=== PATIENT | female | born 1980 | race Two or more races ===

== ENCOUNTER 2018-03-22 11:57 | Emergency (ER) | payer MEDICAID ==
[~2018-03-22] VITALS: Ht 154.9 cm; Wt 56.2 kg
[~2018-03-22 11:57] MED LIST: ACETAMINOPHEN-1 EAC1 ORAL; CEPHALEXIN500 MG ORAL; KEFLEX500 MG ORAL; NKM; NORCO 5-325 TA1 EACH ORAL; POLYTRIM OP SOL10 ML RIGHT EYE; ZANTAC150 MG ORAL
--- NOTE | 2018-03-22 12:23 | Emergency Room Report ---
History of Present Illness General Chief Complaint: Female Urogenital Problems Source: Patient Present Illness HPI patient is a 37-year-old female with no significant past medical history here complaining of 3 days of dysuria, urinary frequency/urgency. Denies some dysuria, fever/chills, suprapubic pain, flank pain. Patient tried some over-the -counter pain medication for her dysuria with no improvement. Patient currently on her menstruation. Patient is rating her pain 3 out of 10 with no radiation. Patient has not recently been sexually active. SOB, chest pain, headache, dizziness, and all other associated symptoms. Allergies: Coded Allergies: No Known Allergies (Unverified , 09/24/13) Patient History Past Medical History: see triage record Past Surgical History: none Last Menstrual Period: on period Now: No Immunizations: UTD Reviewed Nursing Documentation: PMH: Agreed; PSxH: Agreed Nursing Documentation-PMH Past Medical History: No Stated History Hx Gastrointestinal Problems: Yes - gall stones Review of Systems All Other Systems: negative except mentioned in HPI Physical Exam Vital Signs Date Time Temp Pulse Resp B/P (MAP) Pulse Ox O2 Delivery O2 Flow Rate FiO2 03/22/18 12:06 98.4 53 14 108/59 96 Room Air 98.4 Sp02 EP Interpretation: reviewed General Appearance: normal inspection, well appearing Head: normocephalic Eyes: bilateral eye normal inspection, bilateral eye PERRL ENT: normal ENT inspection Neck: normal inspection, full range of motion Respiratory: normal inspection, chest non-tender, no rhonchi Cardiovascular #1: normal inspection, normal peripheral pulses, regular rate, rhythm, no murmur Gastrointestinal: normal inspection, soft Rectal: deferred Genitourinary: normal inspection, no CVA tenderness Musculoskeletal: normal inspection, back normal Neurologic: normal inspection, alert, oriented x3 Psychiatric: normal inspection, judgement/insight normal Skin: normal inspection, normal color, no rash, warm/dry Lymphatic: normal inspection, no adenopathy Medical Decision Making PA Attestation all diagnosis, treatment plans were reviewed by myself supervising physician Diagnostic Impression: Primary Impression: UTI (urinary tract infection) Additional Impression: Dysuria ER Course patient is a 37-year-old female with no significant past medical history here complaining of 3 days of dysuria, urinary frequency/urgency. Denies some dysuria, fever/chills, suprapubic pain, flank pain. Patient tried some over-the -counter pain medication for her dysuria with no improvement. Patient currently on her menstruation. Patient is rating her pain 3 out of 10 with no radiation. Patient has not recently been sexually active. SOB, chest pain, headache, dizziness, and all other associated symptoms. Ddx considered but are not limited to dysuria, UTI, dementia area, pyelonephritis Vital signs: are WNL, pt. is afebrile H&PE are most consistent with UTI ORDERS: UA and urine test, Macrobid 100 mg twice a day 7 days, Pyridium 100 mg 3 times a day when necessary 2 days ED INTERVENTIONS: UA and urine test DISCHARGE: At this time pt. is stable for d/c to home. Will provide printed patient care instructions, and any necessary prescriptions. Care plan and follow up instructions have been discussed with the patient prior to discharge. 3+ leuks and UA and positive nitrite Lab Results Impression 3+ leuks and UA positive nitrite Last Vital Signs Date Time Temp Pulse Resp B/P (MAP) Pulse Ox O2 Delivery O2 Flow Rate FiO2 03/22/18 12:06 98.4 53 14 108/59 96 Room Air 98.4 Disposition: HOME, SELF-CARE Condition: Stable Scripts Phenazopyridine Hcl* (PYRIDIUM*) 100 Mg Tablet 100 MG ORAL THREE TIMES A DAY for 2 Days, #6 TAB Prov: Katie Catalan P.A. 03/22/18 Nitrofurantoin Monohyd/M-Cryst* (MACROBID 100 MG*) 100 Mg Capsule 100 MG ORAL EVERY 12 HOURS for 7 Days, #14 CAP Prov: Katie Catalan P.A. 03/22/18 Patient Instructions: Urinary Tract Infection Additional Instructions: take medication as directed, if fever chills flank name come to the emergency room. Drink a lot of fluids. Avoid sweet food Katie Catalan Mar 22, 2018 12:23
[2018-03-22 12:31] LABS: APPEARANCE,URINE SLIGHTLY CLOUDY; BILIRUBIN, URINE NEGATIVE (NEGATIVE); COLOR,URINE PALE YELLOW; GLUCOSE, URINE (UA) NEGATIVE (NEGATIVE); KETONES,URINE NEGATIVE (NEGATIVE); LEUKOCYTE ESTERASE ,URINE 3+ (NEGATIVE); NITRITE,URINE NEGATIVE (NEGATIVE); PH,URINE 6.5 (4.5-8.0); PROTEIN,URINE 2+ (NEGATIVE); UROBILINOGEN,URINE NORMAL MG/DL (0.0-1.0)
[2018-03-22] MEDS ORDERED: NITROFURANTOIN100 M2 ORAL (12:48)
[2018-03-22] MEDS ORDERED: PHENAZOPYRIDIN100 MG ORAL (12:48)
[2018-03-22 13:05] VITALS: BP 108/59
== END 2018-03-22 13:05 | disposition home or self-care (01) ==
LOC: EMR 12:25
DX: N39.0 Urinary tract infection, site not specified (principal)
CPT/HCPCS: 81001; 81025; 87086; 99284